=== PATIENT | male | born 1990 | race African-American/Black ===

== ENCOUNTER 2020-03-04 15:44 | Emergency (ER) | payer OTHER ==
[2020-03-04 16:24] VITALS: BP 142/100
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
== END 2020-03-04 18:01 | disposition home or self-care (01) ==
LOC: ER 15:44
DX: S16.1XXA Strain of muscle, fascia and tendon at neck level, initial encounter (principal); M54.6 Pain in thoracic spine; V49.50XA Passenger injured in collision with unspecified motor vehicles in traffic accident, initial encounter; M41.9 Scoliosis, unspecified; F17.200 Nicotine dependence, unspecified, uncomplicated
CPT/HCPCS: 72050; 72070; 99284